=== PATIENT | male | born 1980 | race Caucasian/White ===

== ENCOUNTER 2023-08-14 08:51 | Emergency (ER) | payer OTHER, SELFPAY ==
[2023-08-14] MEDS ORDERED: Ondansetron PF 4 MG/2 ML Vial ONE (11:07)
[2023-08-14] MEDS ORDERED: Ketorolac Tromethamine 30 MG/ML VIAL ONE (11:08)
[2023-08-14 11:12] LABS: ALT (SGPT) 36 U/L (8-55); AST (SGOT) 24 U/L (5-34); Albumin 4.4 g/dL (3.5-5.0); Alkaline Phosphatase 75 U/L (40-110); Anion Gap 13 mmol/L (10-20); BUN (Urea Nitrogen) 13 mg/dL (8.9-20.6); Bilirubin, Total 0.7 mg/dL (0.2-1.2); Calc. Creatinine Clearance 0 mL/min (70-130); Calcium 9.9 mg/dL (7.8-10.44); Carbon Dioxide 29 mmol/L (22-29); Chloride 101 mmol/L (98-107); Estimated GFR 60; Globulin 2.8 g/dL (2.4-3.5); Glucose 90 mg/dL (70-105); Magnesium 1.7 mg/dL (1.6-2.6); Potassium 4.1 mmol/L (3.5-5.1); Protein, Total 7.2 g/dL (6.0-8.3); Sodium 139 mmol/L (136-145)
[2023-08-14 11:13] LABS: #Basophils 0.1 10x3/uL (0.0-0.2); #Eosinphils 0.3 10x3/uL (0.0-0.5); #Monocytes 0.7 10x3/uL (0.0-1.1); #Neutrophils 5.3 10x3/uL (1.5-8.4); %Eosinophils 3.8 % (0.0-6.0); %Lymphocytes 22.1 % (18.0-47.0); %Neutrophils 64.7 % (40.0-75.0); Hematocrit 56.6 % (38.8-50.0); Hemoglobin 18.8 g/dL (13.5-17.5); Mean Corpuscular HGB CONC 33.2 g/dL (32.0-36.0); Mean Corpuscular Hemoglobin 28.7 pg (27.0-33.0); Mean Corpuscular Volume 86.4 fl (81.2-95.1); Platelet Count 299 10x3/uL (150-450); RBC Distribution Width 17.2 % (11.5-14.5); Red Blood Cell (RBC) Count 6.55 10x6/uL (4.32-5.72); White Blood Cell (WBC) Count 8.2 10x3/uL (3.5-10.5)
[2023-08-14 11:36] LABS: Bilirubin Neg (Negative); Blood, Urine Negative (Negative); Clarity Clear (Clear); Glucose, Urine (Dipstick) Normal (Negative); Ketone, Urine Negative (Negative); Leukocyte Negative (Negative); Nitrite Negative (Negative); Protein, Urine (Dipstick) 15 mg/dl (Neg-Trace); Urobilinogen Normal mg/dL (Less than 2)
[2023-08-14] MEDS ORDERED: Morphine 4 MG/ML VIAL ONE (11:36)
[2023-08-14 11:58] LABS: CAUTI Indications for Culture Dysuria,urgency,freq; RBC/HPF None Seen HPF (0-3); Squamous Epithelial 0-3 HPF (0-3); WBC/HPF 0-3 HPF (0-3)
[2023-08-14 12:00] LABS: Urine Culture Reflex No No
== END 2023-08-14 12:06 | disposition home or self-care (01) ==
LOC: CSHERS 08:51
DX: S22.42XA Multiple fractures of ribs, left side, initial encounter for closed fracture (principal); I10 Essential (primary) hypertension; V80.010A Animal-rider injured by fall from or being thrown from horse in noncollision accident, initial encounter
CPT/HCPCS: 74176; 80053; 81001; 83735; 85025; 96374; 96375; J1885; J2270; J2405

== ENCOUNTER 2023-09-03 14:56 | Emergency (ER) | payer OTHER ==
[2023-09-03 15:21] LABS: #Basophils 0.1 10x3/uL (0.0-0.2); #Eosinphils 0.1 10x3/uL (0.0-0.5); #Monocytes 0.9 10x3/uL (0.0-1.1); #Neutrophils 6.8 10x3/uL (1.5-8.4); %Basophils 0.6 % (0.0-2.0); %Eosinophils 1.2 % (0.0-6.0); %Lymphocytes 15.9 % (18.0-47.0); %Monocytes 9.6 % (0.0-10.0); %Neutrophils 72.5 % (40.0-75.0); Hematocrit 52.9 % (38.8-50.0); Hemoglobin 17.4 g/dL (13.5-17.5); Mean Corpuscular HGB CONC 32.9 g/dL (32.0-36.0); Mean Corpuscular Hemoglobin 28.8 pg (27.0-33.0); Mean Corpuscular Volume 87.6 fl (81.2-95.1); Mean Platelet Volume 10.1 fl (7.4-10.4); Platelet Count 277 10x3/uL (150-450); RBC Distribution Width 15.3 % (11.5-14.5); Red Blood Cell (RBC) Count 6.04 10x6/uL (4.32-5.72); White Blood Cell (WBC) Count 9.4 10x3/uL (3.5-10.5)
[2023-09-03] MEDS ORDERED: Ondansetron PF 4 MG/2 ML Vial ONE (15:26)
[2023-09-03] MEDS ORDERED: Morphine 4 MG/ML VIAL ONE (15:26)
[2023-09-03] MEDS ORDERED: Ketorolac Tromethamine 30 MG/ML VIAL ONE (15:27)
[2023-09-03 15:38] LABS: ALT (SGPT) 38 U/L (8-55); AST (SGOT) 37 U/L (5-34); Albumin 4.1 g/dL (3.5-5.0); Alkaline Phosphatase 66 U/L (40-110); Anion Gap 13 mmol/L (10-20); BUN (Urea Nitrogen) 19 mg/dL (8.9-20.6); Bilirubin, Total 0.6 mg/dL (0.2-1.2); Calc. Creatinine Clearance 0 mL/min (70-130); Calcium 9.3 mg/dL (7.8-10.44); Carbon Dioxide 26 mmol/L (22-29); Chloride 103 mmol/L (98-107); Estimated GFR 44; Globulin 2.5 g/dL (2.4-3.5); Glucose 91 mg/dL (70-105); Potassium 4.3 mmol/L (3.5-5.1); Protein, Total 6.6 g/dL (6.0-8.3); Sodium 138 mmol/L (136-145)
[2023-09-03 15:52] LABS: Bilirubin Neg (Negative); Blood, Urine Negative (Negative); Clarity Clear (Clear); Glucose, Urine (Dipstick) Normal (Negative); Ketone, Urine Negative (Negative); Leukocyte 25 (Negative); Nitrite Negative (Negative); Protein, Urine (Dipstick) 30 mg/dl (Neg-Trace); Specific Gravity, Urine 1.015 (1.005-1.030); Urobilinogen Normal mg/dL (Less than 2)
[2023-09-03 16:11] LABS: Bacteria/HPF 2+ HPF (None Seen); CAUTI Indications for Culture Pelvic or flank pain; RBC/HPF 0-3 HPF (0-3); Squamous Epithelial None Seen HPF (0-3); WBC/HPF 0-3 HPF (0-3)
[2023-09-03 16:13] LABS: Urine Culture Reflex No No
[2023-09-03] MEDS ORDERED: HYDROmorphone 0.5 MG/0.5 ML SYRINGE ONE (16:50)
== END 2023-09-03 19:27 | disposition home or self-care (01) ==
LOC: CSHERS 14:56
DX: R10.9 Unspecified abdominal pain (principal); R79.89 Other specified abnormal findings of blood chemistry; I10 Essential (primary) hypertension; S22.42XD Multiple fractures of ribs, left side, subsequent encounter for fracture with routine healing; W01.0XXD Fall on same level from slipping, tripping and stumbling without subsequent striking against object, subsequent encounter
CPT/HCPCS: 74176; 80053; 81001; 85025; 93005; 96374; 96375; J1170; J1885; J2270; J2405

== ENCOUNTER → 2023-10-29 | Day surgery (SDC) | payer OTHER ==
[~2023-10-29] MED LIST: EPINEPHrine 1 mg/ml MDV (1ml Charge) ONE; Gadobenate Dimeglumine 529 MG/1 ML (5 ML SDV) ONE; Iopamidol 300 61% 100 ML VIAL FS ONE; Lidocaine 1% PF 5 ML VIAL ONE; Sodium Bicarbonate 2.5 MEQ/5 ML VIAL ONE
== END ==
LOC: CSHRAD 08:53
PROVIDERS: ATTEND Orthopaedic Surgery
PROC: BP08YZZ Plain Radiography of Right Shoulder using Other Contrast (ICD-10-PCS; principal; 2023-10-29)
DX: M24.811 Other specific joint derangements of right shoulder, not elsewhere classified (principal)
CPT/HCPCS: 23350; A9577; J0171; J7050; Q9967

== ENCOUNTER 2023-12-04 08:03 | Outpatient (CLI) | payer OTHER ==
[2023-12-04] MEDS ORDERED: Magnevist 469MG/ML 20 ML VIAL ONE (09:59)
== END 2023-12-04 08:04 ==
LOC: CSHMRI 08:03
PROVIDERS: ATTEND Family Medicine
DX: N28.89 Other specified disorders of kidney and ureter (principal); D18.03 Hemangioma of intra-abdominal structures
CPT/HCPCS: 74183

== ENCOUNTER 2024-05-12 08:19 | Outpatient (CLI) | payer OTHER | END 2024-05-12 08:20 | disposition home or self-care (01) | LOC: CSHRAD 08:19 | PROVIDERS: ATTEND Anesthesiology | DX: M25.532 Pain in left wrist (principal) ==

== ENCOUNTER 2024-12-03 17:07 | Emergency (ER) | payer OTHER ==
[2024-12-03] MEDS ORDERED: Ondansetron PF 4 MG/2 ML Vial ONE (18:05)
[2024-12-03] MEDS ORDERED: Acetaminophen 325 MG TAB ONE (18:16)
[2024-12-03 18:32] LABS: #Eosinophils 0.05 10x3/uL (0.0-0.5); #Monocytes 0.93 10x3/uL (0.0-1.1); #Neutrophils 8.82 10x3/uL (1.5-8.4); %Basophils 0.9 % (0.0-2.0); %Eosinophils 0.4 % (0.0-6.0); %Lymphocytes 14.6 % (18.0-47.0); %Neutrophils 75.5 % (40.0-75.0); Hematocrit 50.4 % (38.8-50.0); Hemoglobin 16.1 g/dL (13.5-17.5); Mean Corpuscular HGB CONC 31.9 g/dL (32.0-36.0); Mean Corpuscular Hemoglobin 26.5 pg (27.0-33.0); Mean Platelet Volume 9.1 fL (7.4-10.4); Platelet Count 323 10x3/uL (150-450); RBC Distribution Width 17.3 % (11.5-14.5); Red Blood Cell (RBC) Count 6.07 10x6/uL (4.32-5.72); White Blood Cell (WBC) Count 11.7 10x3/uL (3.5-10.5)
[2024-12-03 18:40] LABS: ALT (SGPT) 50 U/L (8-55); AST (SGOT) 28 U/L (5-34); Albumin 3.7 g/dL (3.5-5.0); Alkaline Phosphatase 73 U/L (40-110); Anion Gap 16 mmol/L (10-20); BUN (Urea Nitrogen) 9 mg/dL (8.9-20.6); Bilirubin, Total 0.4 mg/dL (0.2-1.2); Calc. Creatinine Clearance 0 mL/min (70-130); Calcium 9.7 mg/dL (7.8-10.44); Carbon Dioxide 27 mmol/L (22-29); Chloride 102 mmol/L (98-107); Estimated GFR 86; Globulin 3.4 g/dL (2.4-3.5); Glucose 107 mg/dL (70-105); Potassium 4.1 mmol/L (3.5-5.1); Protein, Total 7.1 g/dL (6.0-8.3); Sodium 141 mmol/L (136-145)
== END 2024-12-03 19:46 | disposition home or self-care (01) ==
LOC: CSHERS 17:07
DX: J40 Bronchitis, not specified as acute or chronic (principal); E86.0 Dehydration; I10 Essential (primary) hypertension; Z79.899 Other long term (current) drug therapy
CPT/HCPCS: 80053; 85025; 87428; 96361; 96374; J2405